=== PATIENT | male | born 1990 | race Caucasian/White ===

== ENCOUNTER 2016-12-14 18:14 | Emergency (ER) | payer OTHER ==
--- NOTE | ~2016-12-14 | CT16 ---
[facility] A Service of [facility] RADIOLOGY TEXT RESULTS PATIENT: FATOUMATA PEREZ LOCATION: [facility] : [birth year] UNIT #: [id number] AGE: [address]: Jacobo Woodard DO SEX: M ORDER DR: [id number] [facility] [address] [place], [place] [address] [id number] E MR#: [id number] #: [id number] NAME: FATOUMATA PEREZ : 1990 SEX: M STUDY DATE/TIME: 12/14/2016 17:20 UNIT: JUAN ROOM: STUDY DESCRIPTION: CT Angio Chest for PE Attending Physician: Jacobo Woodard D.O. Ordering Physician: Jacobo Woodard D.O. Primary Care Physician: Robert Mallory M.D. MEDICAL IMAGING REPORT This report is preliminary unless electronic signature is present EXAM Chest CTA 12/14 INDICATIONS Shortness of air and chest pain today. Elevated D-dimer. Pain is sharp. There is associated chest tightness and pressure. Pain rates 10/10. TECHNIQUE Axial images were obtained through the chest following IV contrast administration. 3-D reformats were obtained. This CT exam was performed with one or more of the following radiation dose reduction techniques: automatic exposure control, adjustment of mA and/or kV according to patient size, and iterative reconstruction. COMPARISON STUDIES 06/03/2014. FINDINGS There is no pulmonary embolism or aortic dissection. There is no pleural or pericardial effusion. There is no adenopathy. The lungs are clear. There is no pneumothorax. The upper abdomen demonstrates hepatic steatosis. IMPRESSION No pulmonary embolism or aortic dissection. No active disease in the chest. Again seen is hepatic steatosis. Dictated by... Oneal Hsu Jr., M.D. [facility] A Service of [facility] RADIOLOGY TEXT RESULTS PATIENT: FATOUMATA PEREZ LOCATION: [facility] : [birth year] UNIT #: [id number] AGE: [address]: Hottman,Jacobo M DO SEX: M ORDER DR: THIS IS AN ELECTRONICALLY VERIFIED REPORT Oneal Hsu Jr., M.D. at 12/14/2016 11:04 PM JEAN/armando TD: 12/14/2016 19:01 JOB #: [id number] MEDICAL IMAGING REPORT Page 1 of 1 COPY
--- NOTE | ~2016-12-14 | EKG ---
PATIENT: FATOUMATA PEREZ UNIT #: [id number] Ventricular Rate: 89 BPM Atrial Rate: 89 BPM P-R Interval: 142 ms QRS Duration: 86 ms Q-T Interval: 352 ms QTC Calculation(Bezet): 428 ms P [place]: 58 degrees Calculated R [place]: 28 degrees Calculated T [place]: 42 degrees Diagnosis Line: Normal sinus rhythm Diagnosis Line: Normal ECG Diagnosis Line: No previous ECGs available Diagnosis Line: Confirmed by AUGUST MAURICE MD ([id number]) on 12/18/2016 Diagnosis Line: 3:50:11 PM INTERPRETING MD: JOSAFAT HEALY
--- NOTE | ~2016-12-14 | CR72 ---
[facility] A Service of [facility] RADIOLOGY TEXT RESULTS PATIENT: FATOUMATA PEREZ LOCATION: [facility] : 86 UNIT #: [id number] AGE: [address]: Jacobo Woodard DO SEX: M ORDER DR: [id number] [facility] [address] [place], [place] [address] [id number] P MR#: [id number] Acc #: [id number] NAME: FATOUMATA PEREZ : 1990 SEX: M STUDY DATE/TIME: 12/14/2016 16:09 UNIT: [facility] ROOM: STUDY DESCRIPTION: CR Chest Single View Portable Attending Physician: Jacobo Woodard D.O. Ordering Physician: Jacobo Woodard D.O. Primary Care Physician: Robert Mallory M.D. MEDICAL IMAGING REPORT This report is preliminary unless electronic signature is present EXAM Portable AP view of the chest. COMPARISON February 24, 2015, July 16, 2013, and April 19, 2011. INDICATION 25-year-old male with chest pain and dyspnea since this morning. FINDINGS Cardiomediastinal silhouette is likely within normal limits for portable technique and apical lordotic positioning. No evidence of a pneumothorax, pleural effusion, or acute airspace disease. IMPRESSION No acute radiographic abnormality. Normal heart size. Dictated by... Roman Barraza M.D. THIS IS AN ELECTRONICALLY VERIFIED REPORT Roman Barraza M.D. at 12/19/2016 5:36 PM [place] TD: 12/14/2016 17:28 JOB #: [id number] MEDICAL IMAGING REPORT Page 1 of 1 COPY
[2016-12-14 15:37] LABS: BASOPHIL# 0.1 X10e3 (0-0.3); EOSINOPHIL# 0.4 X10e3 (0-0.7); EOSINOPHIL% 3.6 % (0.0-7.0); HEMATOCRIT 47.2 % (38.0-50.0); HEMOGLOBIN 15.8 gm/dL (13.0-16.0); LYMPHOCYTE# 3.5 X10e3 (1.0-3.5); LYMPHOCYTE% 33.4 % (17.0-45.0); MEAN CELL VOLUME 86.7 FL (83-96); MEAN CORPUSCULAR HGB CONC 33.5 g/dL (30-36); MEAN PLATELET VOLUME 9.7 FL (6.5-11.5); MONOCYTE% 9.3 % (3.0-12.0); NEUTROPHIL# 5.6 X10e3 (1.5-7.1); NEUTROPHIL% 52.7 % (40-75); PLATELET COUNT 169 X10e3 (140-420); RED BLOOD COUNT 5.45 X10e (3.90-5.60); RED CELL DISTRIBUTION WIDTH 13.9 % (11.0-15.5); WHITE BLOOD COUNT 10.5 X10e3 (4.0-10.5)
[2016-12-14 15:37] LABS: POC - CKMB 7.8 ng/mL (0.0-7.9); POC - TROPONIN <0.05 ng/mL (<=0.05)
[2016-12-14 15:44] LABS: DIFF IND NO; INR 0.9; PARTIAL THROMBOPLASTIN TIME 24.3 SECONDS (23.5-31.3); PROTHROMBIN TIME (PATIENT) 9.9 SECONDS (9.6-11.5)
[2016-12-14 15:58] LABS: ALBUMIN SERUM 4.3 g/dL (3.5-5.0); BILIRUBIN, DIRECT 0.1 mg/dL (0.0-0.2); BILIRUBIN,INDIRECT 0.4 mg/dL (0.0-0.9); BILIRUBIN,TOTAL 0.5 mg/dL (0.2-2.0); CALCIUM SERUM 8.9 mg/dL (8.4-10.2); CREATININE SERUM 0.8 mg/dL (0.6-1.4); GLOM FILT RATE Estimated 122.5 mL/min (>60); POTASSIUM 3.9 mmol/L (3.5-5.1); PROTEIN TOTAL SERUM 7.6 g/dL (6.0-8.3)
[2016-12-14 16:23] LABS: AMPHETAMINE NEG (NEG); BARBITURATES NEG (NEG); BENZODIAZEPINES NEG (NEG); COCAINE NEG (NEG); MARIJUANA NEG (NEG); OPIATES NEG (NEG); TRICYCLIC ANTIDEPRESSANTS NEG (NEG); U METHADONE NEG (NEG)
[2016-12-14 17:36] LABS: POC - CKMB 5.7 ng/mL (0.0-7.9); POC - TROPONIN <0.05 ng/mL (<=0.05)
[~2016-12-14 18:14] MED LIST: ALBUTEROL17 GM INH; ATENOLOL PO; AURALGAN; CIPRO PO; DIAZEPAM PO; DICLOFENAC PO; DOXYCYCLINE HY100 M4 PO; FLEXERIL PO; LISINOPRIL10 MG PO; LOPID600 MG PO; MEDROL DOSEPAK4 MG DOB; NAPROSYN500 MG PO; NORFLEX100 MG PO; PHENERGAN W/CO120 ML PO; TENORMIN50 MG PO; VICODIN ES 7.51 EACH PO; ZITHROMAX PO
== END 2016-12-14 18:38 | disposition left against medical advice (07) ==
LOC: CED 18:14
PROVIDERS: Emergency Medicine
DX: R07.9 Chest pain, unspecified (principal); I10 Essential (primary) hypertension; K21.9 Gastro-esophageal reflux disease without esophagitis; F17.200 Nicotine dependence, unspecified, uncomplicated; Z90.89 Acquired absence of other organs; Z98.890 Other specified postprocedural states; Z88.8 Allergy status to other drugs, medicaments and biological substances
CPT/HCPCS: 36415; 71010; 71275; 80048; 80076; 80307; 82553; 83880; 84484; 85025; 85379; 85610; 85730; 93005; 99284; Q9967